=== PATIENT | male | born 1960 | race Asian ===

== ENCOUNTER → 2016-11-17 | Outpatient (CLI) | payer OTHER ==
[2016-11-17 11:21] LABS: ALT/SGPT 35 U/L (12-78); AST/SGOT 19 U/L (15-37); BLOOD UREA NITROGEN 9 mg/dl (7-18); BUN/CREATININE RATIO 8.6 (10-20); CALCIUM 8.7 mg/dl (8.5-10.1); CARBON DIOXIDE 28 mmol/L (21-32); CHLORIDE 106 mmol/L (98-107); GLUCOSE 140 mg/dl (70-99); POTASSIUM 4.2 mmol/L (3.5-5.1); SODIUM 140 mmol/L (136-145)
[2016-11-17 11:30] LABS: RATIO 18.5 mcg/mg (0-30.0)
[2016-11-17 11:32] LABS: ALB/GLOB RATIO 1.3 (0.9-2); ALKALINE PHOSPHATASE 72 U/L (45-117); CHOLESTEROL 164 mg/dl (0-200); CHOLESTEROL/HDL RATIO 4.8; HDL CHOLESTEROL 34 mg/dl; LDL CHOLESTEROL CALCULATED 88 mg/dl; THYROID STIMULATING HORMONE 0.561 uIu/ml (0.300-4.500); TRIGLYCERIDES 208 mg/dl (0-150); VERY LOW DENSITY LIPOPROT CALC 42 mg/dl
[2016-11-17 12:08] LABS: ESTIMATED AVERAGE GLUCOSE 171 mg/dl; HA1C FLAG Normal (Normal)
== END | disposition home or self-care (01) ==
LOC: C.LABBC 09:38
PROVIDERS: ATTEND Nurse Practitioner Family
DX: E11.49 Type 2 diabetes mellitus with other diabetic neurological complication (principal)

== ENCOUNTER → 2017-11-01 | Outpatient (CLI) | payer OTHER ==
[2017-11-01 13:39] LABS: BASO % 0.2 %; BASO ABS # 0.02 K/uL (0-0.2); EOS % 1.7 %; EOS ABS # 0.14 K/uL (0-0.5); HEMATOCRIT 38.4 % (42-52); HEMOGLOBIN 13.2 g/dL (14.0-18.0); IG# 0.02 K/uL (0.00-0.02); LYMPH % 16.1 %; LYMPH ABS # 1.31 K/uL (1.2-3.4); MEAN CELL VOLUME 80.8 fL (80-100); MEAN CORPUSCULAR HEMOGLOBIN 27.8 pg (25-34); MEAN CORPUSCULAR HGB CONC 34.4 g/dl (32-36); MEAN PLATELET VOLUME 10.1 fL (7.4-10.4); MONO % 4.3 %; MONO ABS # 0.35 K/uL (0.11-0.59); NEUT % 77.5 %; NEUT ABS # 6.31 K/uL (1.4-6.5); PLATELET COUNT 248 K/uL (130-400); RED CELL DISTRIBUTION WIDTH CV 12.8 % (11.5-14.5); RED CELL DISTRIBUTION WIDTH SD 37.5 fL (36.4-46.3); WHITE BLOOD COUNT 8.15 K/uL (4.8-10.8)
[2017-11-01 14:06] LABS: HEMOGLOBIN A1C 8.7 % (4.5-5.6)
[2017-11-01 14:35] LABS: ALBUMIN 3.9 gm/dl (3.4-5.0); ALT/SGPT 38 U/L (12-78); AST/SGOT 20 U/L (15-37); BLOOD UREA NITROGEN 10 mg/dl (7-18); CARBON DIOXIDE 27 mmol/L (21-32); CREATININE 0.95 mg/dl (0.60-1.40); GLUCOSE 239 mg/dl (70-99); LIPASE 130 U/L (73-393); POTASSIUM 4.5 mmol/L (3.5-5.1); SODIUM 135 mmol/L (136-145)
[2017-11-01 14:39] LABS: ALKALINE PHOSPHATASE 84 U/L (45-117); CHOLESTEROL 162 mg/dl (0-200); LDL CHOLESTEROL (DIRECT) 107 mg/dl; TOTAL PROTEIN 7.5 gm/dl (6.4-8.2)
== END | disposition home or self-care (01) ==
LOC: C.LABBC 09:45
PROVIDERS: ATTEND Physician Assistant Medical
DX: Z00.00 Encounter for general adult medical examination without abnormal findings (principal); E11.9 Type 2 diabetes mellitus without complications; E78.5 Hyperlipidemia, unspecified; E11.29 Type 2 diabetes mellitus with other diabetic kidney complication; G62.9 Polyneuropathy, unspecified